=== PATIENT | female | born 1960 | race Caucasian/White ===

== ENCOUNTER 2020-09-29 16:22 | Emergency (ER) | payer MEDICARE, BC, MEDICAID ==
[~2020-09-29] VITALS: Ht 167.6 cm; Wt 125.7 kg
[2020-09-29] MEDS ORDERED: LIPITOR10 MG PO (16:42)
[2020-09-29] MEDS ORDERED: COREG25 M1 PO (16:43)
[2020-09-29] MEDS ORDERED: PROTONIX40 M2 PO (16:44)
[2020-09-29] MEDS ORDERED: NEURONTIN300 MG (16:44)
[2020-09-29] MEDS ORDERED: COZAAR 25 MG TA25 M1 PO (16:48)
[2020-09-29] MEDS ORDERED: TIZANIDINE HCL4 M1 PO (16:50)
[2020-09-29] MEDS ORDERED: VITAMIN D3125 MCG (16:52)
[2020-09-29 16:55] LABS: ABSOLUTE BASOPHILS 0.1 thou/uL (0.0-0.2); ABSOLUTE EOSINOPHILS 0.2 thou/uL (0.0-0.7); ABSOLUTE LYMPHOCYTES 1.8 thou/uL (0.8-5.3); ABSOLUTE MONOCYTES 0.4 thou/uL (0.0-1.2); ABSOLUTE NEUTROPHILS 5.2 thou/uL (1.6-8.1); BASOPHILS 0.7 %; EOSINOPHILS 2.1 %; HEMATOCRIT 41.7 % (37.0-47.0); HEMOGLOBIN 14.3 gm/dL (12.0-15.0); LYMPHOCYTES 23.6 %; MCH 30.4 pg (26.0-34.0); MCHC 34.4 g/dL (28.0-37.0); MCV 88.3 fL (80.0-100.0); MONOCYTES 5.5 %; MPV 7.8 fl. (7.2-11.1); NUCLEATED RBCS 0 /100WBC; PLATELET COUNT* 264 thou/uL (150-400); POLYS 68.1 %; RBC 4.72 mil/uL (4.20-5.00); RDW-CV 13.6 % (10.5-14.5); WBC 7.7 thou/uL (4.0-11.0)
[2020-09-29] MEDS ORDERED: TRULICITY1.5 MG/0.5 SQ (16:59)
[2020-09-29 17:02] LABS: CREATININE 1.1 mg/dL (0.6-1.3); POTASSIUM 3.9 mmol/L (3.5-5.1)
[2020-09-29] MEDS ORDERED: KLOR-CON 10 ER10 MEQ PO (17:02)
[2020-09-29] MEDS ORDERED: LEVO-T100 MCG PO (17:02)
[2020-09-29 17:14] LABS: ALBUMIN 3.8 g/dL (3.4-5.0); CK-MB MASS 1.4 ng/mL (<0.5-3.6); MAGNESIUM 2.2 mg/dL (1.8-2.4); TOTAL BILIRUBIN 0.5 mg/dL (<0.1-1.0); TOTAL PROTEIN 7.3 g/dL (6.4-8.2)
[2020-09-29 19:42] VITALS: BP 131/58
--- NOTE | 2020-09-30 13:51 | EKG ---
[place] [address] ELECTROCARDIOGRAM REPORT Name: CAROLINA GOMEZ Room: [facility]#: [id number] Admission: 09/29/20 Attend Phys: Discharge: 09/29/20 Date of : 56 Date of Service: 09/29/20 1634 Report #: [id number] THIS REPORT FOR: //name// [facility] ED Test Date: 2020-09-29 Test Time: 16:34:49 Pat Name: CAROLINA GOMEZ Department: Room: Gender: F [employer]: : 1960 Requested By: Mannie Renee Order Number: [id number] MD: Max Parks Measurements Intervals [place] Rate: 72 P: 44 OK: 184 QRS: 1 QRSD: 104 T: 23 QT: 392 QTc: 430 Interpretive Statements Sinus rhythm Borderline T abnormalities, anterior leads No previous ECG available for comparison Electronically Signed On 09-30-2020 13:50:52 CDT by Max Parks [email or web address] <ELECTRONICALLY SIGNED> By: Max Praks MD, [facility] 09/30/20 1350 1634 1634 Max Parks MD, FAC /EPI
== END 2020-09-29 19:42 | disposition home or self-care (01) ==
LOC: M.ERS 16:22
PROVIDERS: Family Medicine
DX: R06.02 Shortness of breath (principal); I10 Essential (primary) hypertension; E11.9 Type 2 diabetes mellitus without complications; E78.5 Hyperlipidemia, unspecified; G47.30 Sleep apnea, unspecified; Z88.5 Allergy status to narcotic agent; Z88.8 Allergy status to other drugs, medicaments and biological substances; Z90.710 Acquired absence of both cervix and uterus